=== PATIENT | female | born 1995 | race Hispanic/Latino ===

== ENCOUNTER 2024-07-10 11:30 | Emergency (ER) | payer OTHER ==
[~2024-07-10] VITALS: Ht 167.6 cm; Wt 107.0 kg
[2024-07-10] MEDS ORDERED: LIDOcaine HCl 1% (Local Anesth.) 20 ML VIAL STI STA (11:49)
[2024-07-10] MEDS ORDERED: ceFAZolin 1 GM/VIAL SDV IM ONE (11:50)
[2024-07-10] MEDS ORDERED: STERILE WATER 10 ML/VIAL SDV IM ONE (11:50)
[2024-07-10] MEDS ORDERED: Diph, Acellular Pertussis, Tet 0.5 ML/VIAL (Tdap) SDV IM ONE (11:50)
[2024-07-10] MEDS ORDERED: POVIDONE IODINE 0.5 OZ/BTL TOP ONE (11:50)
[2024-07-10 11:51] VITALS: BP 117/73
[2024-07-10] MEDS ORDERED: CEPHALEXIN500 M1 PO (11:51)
[2024-07-10 12:00] VITALS: BP 126/76
[2024-07-10 12:20] VITALS: BP 126/76
== END 2024-07-10 12:23 | disposition home or self-care (01) | DRG 605 ==
LOC: ED 11:30
PROC: 0HQGXZZ Repair Left Hand Skin, External Approach (ICD-10-PCS; principal; 2024-07-10)
DX: S61.412A Laceration without foreign body of left hand, initial encounter (principal); W26.0XXA Contact with knife, initial encounter; Y93.G1 Activity, food preparation and clean up; Y92.000 Kitchen of unspecified non-institutional (private) residence as the place of occurrence of the external cause